=== PATIENT | male | born 1950 | race Caucasian/White ===

== ENCOUNTER 2018-11-28 15:02 | Emergency (ER) | payer SELFPAY ==
[2018-11-28] MEDS ORDERED: Calcium Chloride 1 GM/10 ML Abboject SYRINGE ONE (18:00)
[2018-11-28] MEDS ORDERED: EPINEPHrine 1 MG/10 ML Abboject SYRINGE ONE (18:00)
== END 2018-11-28 15:16 | disposition expired ==
LOC: EDBD 15:02 → ERS 15:02
DX: I46.9 Cardiac arrest, cause unspecified (principal)
CPT/HCPCS: 31500; 92950; J0171